=== PATIENT | female | born 1990 | race Caucasian/White ===

== ENCOUNTER 2018-10-14 16:31 | Inpatient (IN) | payer BC ==
[2018-10-14 17:27] LABS: BASO % 0.5 % (0-2.0); EOS % 2.1 % (0-4.5); LYMPH % 15.5 % (8-40); MCH 32.2 pg (25.7-33.7); MCHC 35.2 g/dl (32.0-36.0); MEAN CELL VOLUME 91.4 fl (80-96); MONO % 11.5 % (3.8-10.2); NEUT % 70.4 % (42.8-82.8); PLATELET COUNT 211 K/MM3 (134-434); RBC 4.05 M/mm3 (3.60-5.2); RDW 14.5 % (11.6-15.6); WHITE BLOOD COUNT 9.8 K/mm3 (4.0-10.0)
[2018-10-14 17:28] VITALS: BMI 34.7
[2018-10-14 17:39] LABS: INR 0.93 (0.83-1.09)
[2018-10-14 17:42] LABS: ACTIVATED PTT 25.6 SECONDS (25.2-36.5)
[2018-10-14 17:52] LABS: ANION GAP 8 MMOL/L (8-16); BLOOD UREA NITROGEN 9 mg/dL (7-18); CALCIUM 8.1 mg/dL (8.5-10.1); CHLORIDE 106 mmol/L (98-107); CO2 24 mmol/L (21-32); CREATININE 0.4 mg/dL (0.55-1.3); GLUCOSE,RANDOM 77 mg/dL (74-106); POTASSIUM 3.6 mmol/L (3.5-5.1); SODIUM 138 mmol/L (136-145)
[2018-10-14] MEDS ORDERED: TUBERCULIN PPD 5 TU/0.1ML SYRINGE (IN PATIENT USE ONLY) ID ONE (18:00)
[2018-10-14] MEDS ORDERED: DEXTROSE 5%-LACTATED RINGERS 1,000 ML IV SCH (18:00)
[2018-10-14] MEDS ORDERED: OXYTOCIN 30 UNITS in 0.9% NS 30 UNIT/500 ML INFUS.BAG IVPB SCH (21:00)
[2018-10-14] MEDS ORDERED: OXYTOCIN 30 UNITS in 0.9% NS 30 UNIT/500 ML INFUS.BAG IVPB ONE (21:21)
[2018-10-15] MEDS ORDERED: BUPIVACAINE HCL/PF 0.25% (2.5MG/ML) 10 ML VIAL ONE (03:00)
[2018-10-15] MEDS ORDERED: LIDO 2%/EPI 1:200000 PRESRVFRE (20 ML SDVIAL) ONE (03:00)
[2018-10-15] MEDS: FENTANYL/BUPIVACAINE/NS/PF - PCEA - 50 ML DISP.SYRIN EP SCH (03:20)
[2018-10-15] MEDS ORDERED: NALOXONE HCL 0.4 MG/ML VIAL IVPUSH PRN (03:25)
[2018-10-15] MEDS ORDERED: OXYTOCIN 20 UNITS in 0.9% NS 20 UNIT/1,000 ML INFUS.BAG IV ONE (03:43)
[2018-10-15] MEDS: OXYTOCIN 20 UNITS in 0.9% NS 20 UNIT/1,000 ML INFUS.BAG IV SCH ×2 (03:45→10:00)
--- NOTE | 2018-10-15 03:56 | HP ---
Past Medical History - Admission History of Present Illness: 28 yo @ 38 6/7 wks by first trimester ultrasound, EDC 10/23/2018 complicated by: 1. Transfer of care at 35 weeks Patient reports clear leakage of fluid at 1500. She reports movement, no leakage of fluid, vaginal bleeding or contractions. History Source: Patient Limitations to Obtaining History: No Limitations - Past Medical History Cardiovascular: No: HTN Pulmonary: Yes: Asthma Gastrointestinal: No: GERD ...: 2 ...Para: 1 ...Term: 1 ...: 0 ...Spon : 0 ...Induced : 0 ...Multiple Gestation: 0 ...LMP: 01/16/18 ... Weeks Gestation by Dates: 38.4 ...EDC by Dates: 10/23/18 ...EDC by Sono: 10/21/18 Heme/Onc: No: Anemia - Past Surgical History Past Surgical History: Yes: None Hx Myomectomy: No Hx Transabdominal Cerclage: No - Smoking History Smoking history: Never smoked Have you smoked in the past 12 months: No - Alcohol/Substance Use Hx Alcohol Use: No - Social History History of Recent Travel: No Home Medications - Allergies Allergies/Adverse Reactions: Allergies Allergy/AdvReac Type Severity Reaction Status Date / Time No Known Allergies Allergy Verified 10/14/18 17:28 - Home Medications Home Medications: Ambulatory Orders Vitamins (Sjr) - 1 tab PO DAILY 10/03/18 Albuterol Sulfate Inhaler - [Ventolin HFA Inhaler -] 1 puff IH PRN 10/14/18 Family Disease History - Family Disease History Family History: Denies Review of Systems - Review of Systems Constitutional: reports: No Symptoms Neck: reports: No Symptoms Cardiovascular: reports: No Symptoms Respiratory: reports: No Symptoms Gastrointestinal: reports: No Symptoms Neurological: reports: No Symptoms Endocrine: reports: No Symptoms Hematology/Lymphatic: reports: No Symptoms Psychiatric: reports: No Symptoms Physical Exam - Maternity Vital Signs: Vital Signs Temperature 98.0 F 10/15/18 02:00 Pulse Rate 73 10/15/18 02:00 Respiratory Rate 18 10/15/18 02:00 Blood Pressure 113/74 10/15/18 02:00 O2 Sat by Pulse Oximetry (%) Constitutional: Yes: Well Nourished, No Distress, Calm Cardiovascular: Yes: Regular Rate and Rhythm Lungs: Clear to auscultation - Abdominal Exam/OB Number of Fetuses: Single Presentation: Vertex Contractions: No Category: I - Vaginal Exam/OB Vaginal Bleediing: No Amniotic Membrane Status: Ruptured - Physical Exam Psychiatric: Yes: Alert, Oriented - Labs Lab Results: CBC, BMP 10/14/18 17:15 10/14/18 17:15 Hemorrhage Risk Assessment - Risk Factors Medium Risk Factors: Yes: None High Risk Factors: Yes: None Risk Score: 1 Risk Level: Medium Risk Assessment/Plan 28 yo @ 38+ wks PROM 1. Admit to L&D 2. consents reviewed and signed 3. GBS negative 4. Will start pitocin for augmentation 5. Will proceed with expectant management
[2018-10-15] MEDS ORDERED: BISACODYL 10 MG SUPP.RECT RC PRN (04:17)
[2018-10-15] MEDS ORDERED: WITCH HAZEL 50% (TUCKS) 40 PAD/JAR PAD TP PRN (04:17)
[2018-10-15] MEDS ORDERED: BENZOCAINE 28 GM HEMORRHOIDAL OINTMENT TP PRN (04:17)
[2018-10-15] MEDS ORDERED: BENZOCAINE 20% 57 GM BOTTLE TP PRN (04:17)
[2018-10-15] MEDS ORDERED: METHYLERGONOVINE MALEATE 0.2 MG/1 ML AMP IM PRN (04:17)
--- NOTE | 2018-10-15 04:17 | PN ---
Delivery - Delivery Vaginal Delivery: No Problems Type of Anesthesia: Epidural Episiotomy/Laceration: None Delivery, Single - Stages of Labor Date 1st Stage Initiatied: 10/15/18 Time 1st Stage Initiated: 01:30 Date 2nd Stage Initiated: 10/15/18 Time 2nd Stage Initiated: 03:25 Date of Delivery: 10/15/18 Time of Delivery: 03:41 Date Placenta Delivered: 10/15/18 Time Placenta Delivered: 03:45 Placenta: Yes: Spontaneous - Condition of Infant Gender: Female - 1 Minute Total Score: 9 5 Minutes Total Score: 9 - [place] Feeding Plan Initial Plan: Elected not to breastfeed exclusively throughout hospitalization Remarks - Remarks Remarks: Laborist present for delivery
[2018-10-15] MEDS ORDERED: FENTANYL/BUPIVACAINE/NS/PF - PCEA - 50 ML DISP.SYRIN EP ONE (06:21)
[2018-10-15] MEDS: IBUPROFEN 600 MG TABLET (FP) PO PRN (15:44)
[2018-10-15] MEDS: ACETAMINOPHEN 325 MG TABLET (FP) PO PRN (15:45)
[2018-10-16] MEDS: IBUPROFEN 600 MG TABLET (FP) PO PRN ×3 (01:25→20:43)
[2018-10-16] MEDS: ACETAMINOPHEN 325 MG TABLET (FP) PO PRN ×3 (01:26→20:42)
[2018-10-16 08:27] LABS: BASO % 0.3 % (0-2.0); EOS % 2.1 % (0-4.5); HEMATOCRIT 35.8 % (32.4-45.2); LYMPH % 21.8 % (8-40); MCH 31.3 pg (25.7-33.7); MCHC 33.6 g/dl (32.0-36.0); MEAN CELL VOLUME 93.1 fl (80-96); MEAN PLT VOLUME 9.4 fl (7.5-11.1); MONO % 8.6 % (3.8-10.2); NEUT % 67.2 % (42.8-82.8); PLATELET COUNT 188 K/MM3 (134-434); RBC 3.84 M/mm3 (3.60-5.2); RDW 14.7 % (11.6-15.6); WHITE BLOOD COUNT 11.8 K/mm3 (4.0-10.0)
--- NOTE | 2018-10-16 10:14 | PN ---
Post Progress Note - Subjective Subjective: No complains Post Day: 1 Type of Delivery: Vital Signs: Vital Signs Temperature 97.8 F 10/16/18 07:30 Pulse Rate 79 10/16/18 07:30 Respiratory Rate 18 10/16/18 07:30 Blood Pressure 116/72 10/16/18 07:30 O2 Sat by Pulse Oximetry (%) 100 10/15/18 04:55 Breast Exam: Yes: Soft Uterus: Yes: Fundus Firm Abdomen/GI: Yes: Abdomen soft, Tolerating PO Lochia: Yes: Rubra Lochia, amount: Small Perineum: Yes: Intact Activity: Ambulating - Labs Labs: CBC WBC 11.8 K/mm3 (4.0-10.0) H 10/16/18 07:15 RBC 3.84 M/mm3 (3.60-5.2) 10/16/18 07:15 Hgb 12.0 GM/dL (10.7-15.3) 10/16/18 07:15 Hct 35.8 % (32.4-45.2) 10/16/18 07:15 MCV 93.1 fl (80-96) 10/16/18 07:15 MCH 31.3 pg (25.7-33.7) 10/16/18 07:15 MCHC 33.6 g/dl (32.0-36.0) 10/16/18 07:15 RDW 14.7 % (11.6-15.6) 10/16/18 07:15 Plt Count 188 K/MM3 (134-434) 10/16/18 07:15 MPV 9.4 fl (7.5-11.1) 10/16/18 07:15 Absolute Neuts (auto) 7.9 K/mm3 (1.5-8.0) 10/16/18 07:15 Neutrophils % 67.2 % (42.8-82.8) 10/16/18 07:15 Lymphocytes % 21.8 % (8-40) D 10/16/18 07:15 Monocytes % 8.6 % (3.8-10.2) 10/16/18 07:15 Eosinophils % 2.1 % (0-4.5) 10/16/18 07:15 Basophils % 0.3 % (0-2.0) 10/16/18 07:15 Nucleated RBC % 0 % (0-0) 10/16/18 07:15 Assessment/Plan 28yo P2 s/p VSS, Afebrile Doing well Repeat WBC in am Rh pos no need for RhoGam cont. routine PP care plan to d/c in am instructions given
--- NOTE | 2018-10-16 16:24 | DS ---
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: Vital Signs Temperature 97.8 F 10/16/18 07:30 Pulse Rate 79 10/16/18 07:30 Respiratory Rate 18 10/16/18 07:30 Blood Pressure 116/72 10/16/18 07:30 O2 Sat by Pulse Oximetry (%) 100 10/15/18 04:55 Constitutional: Yes: Well Nourished, No Distress, Calm Eyes: Yes: WNL, Conjunctiva Clear HENT: Yes: WNL, Atraumatic, Normocephalic Neck: Yes: WNL, Supple Cardiovascular: Yes: WNL, Regular Rate and Rhythm Respiratory: Yes: WNL, Regular, CTA Bilaterally Gastrointestinal: Yes: WNL ....Post : Yes: Uterus firm, Uterus non-tender Breast(s): Yes: WNL Musculoskeletal: Yes: WNL Extremities: Yes: WNL Integumentary: Yes: WNL Neurological: Yes: WNL, Alert, Oriented ...Motor Strength: WNL Psychiatric: Yes: WNL, Alert, Oriented Labs: CBC, BMP 10/16/18 07:15 10/14/18 17:15 Delivery - Delivery Vaginal Delivery: No Problems Type of Anesthesia: Epidural Episiotomy/Laceration: None EBL (cc): 400 Delivery, Single - Stages of Labor Date 1st Stage Initiatied: 10/15/18 Time 1st Stage Initiated: 01:30 Date 2nd Stage Initiated: 10/15/18 Time 2nd Stage Initiated: 03:25 Date of Delivery: 10/15/18 Time of Delivery: 03:41 Time Placenta Delivered: 03:45 Placenta: Yes: Spontaneous - 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 You may walk unlimited delfina of and climb stairs. You may resume driving the car when you feel safe and comfortable behind the wheel. No sexual activity as instructed. Wound care If you have a bandage, leave it on, and keep dry for 48-72 hours. After that time discard the outer bandage. If they are tapes on the skin under the out of bandage leave them in place. They will peel off in the next 7 to 10 days. Do Not Peel them off. You may shower the day after surgery. If there are tapes present on the skin, you may shower over them. Diet There are no dietary restrictions. Eat healthy, high-fiber foods. Drink 6 to 8 glasses of liquid each day. This will assist in keeping your bowels are regular. Pain management You may take Tylenol or acetaminophen or Ibuprofen (for example, Motrin, Advil etc.) from my pain prescription medication is ordered should be taken as prescribed for moderate to severe pain. Call MD for any of the following: Severe pain not relieved by medication Fever of 101 or higher Excessive bleeding or drainage on dressing Inability to urinate Referrals: Letty Tony MD [Staff Physician] - Disposition: HOME - Home Medications Comprehensive Discharge Medication List: Ambulatory Orders Vitamins (Sjr) - 1 tab PO DAILY 10/03/18 Albuterol Sulfate Inhaler - [Ventolin HFA Inhaler -] 1 puff IH PRN 10/14/18
[2018-10-16] MEDS ORDERED: SENNOSIDES/DOCUSATE COMBO (SENNA PLUS) TABLET (UD) PO PRN (22:00)
[2018-10-17] MEDS: ACETAMINOPHEN 325 MG TABLET (FP) PO PRN (06:16)
[2018-10-17] MEDS: IBUPROFEN 600 MG TABLET (FP) PO PRN (06:16)
[2018-10-17 06:25] LABS: BASO % 0.3 % (0-2.0); EOS % 2.3 % (0-4.5); HEMATOCRIT 36.9 % (32.4-45.2); HEMOGLOBIN 12.5 GM/dL (10.7-15.3); MCH 31.5 pg (25.7-33.7); MCHC 33.8 g/dl (32.0-36.0); MEAN CELL VOLUME 93.1 fl (80-96); MEAN PLT VOLUME 9.3 fl (7.5-11.1); MONO % 7.8 % (3.8-10.2); NEUT % 73.6 % (42.8-82.8); PLATELET COUNT 180 K/MM3 (134-434); RBC 3.97 M/mm3 (3.60-5.2); RDW 14.7 % (11.6-15.6); WHITE BLOOD COUNT 11.8 K/mm3 (4.0-10.0)
[2018-10-17] MEDS: FENTANYL/BUPIVACAINE/NS/PF - PCEA - 50 ML DISP.SYRIN EP SCH (07:22)
[2018-10-17 10:30] VITALS: BP 116/73; PULSE 89; TEMP 97.8
== END 2018-10-17 13:45 | disposition home or self-care (01) | DRG 807 ==
LOC: JLDR 16:31 → J3W 10-15 05:45
PROVIDERS: ADMIT Obstetrics & Gynecology; ATTEND Obstetrics & Gynecology
PROC: 10E0XZZ Delivery of Products of Conception, External Approach (ICD-10-PCS; principal; 2018-10-15)
DX: O42.02 Full-term premature rupture of membranes, onset of labor within 24 hours of rupture (principal); Z37.0 Single live birth; O75.89 Other specified complications of labor and delivery; J45.909 Unspecified asthma, uncomplicated; Z3A.38 38 weeks gestation of pregnancy
CPT/HCPCS: 36415; 59409; 80048; 85025; 85610; 85730; 86593; 86850; 86900; 86901